=== PATIENT | male | born 1945 | race Caucasian/White ===

== ENCOUNTER → 2019-06-14 08:42 | Outpatient (CLI) | payer OTHER ==
[2012-07-05 09:35] VITALS: BMI 27.9
--- NOTE | 2019-06-15 10:23 | EC ---
PATIENT:RUPALI ANN JR DATE OF SERVICE: 06/14/19 SEX: M MEDICAL RECORD: [id number] DATE OF : 43 LOCATION:[facility] AGE OF PATIENT: 73 ADMISSION DATE: 06/14/19 REFERRING PHYSICIAN: INTERPRETING PHYSICIAN: SO CMFARLAND MD ECHOCARDIOGRAM REPORT ECHO CHARGES 4 ECHO COMPLETE Date: 06/14/19 CLINICAL DIAGNOSIS: AORTIC INSUFF HX OF HTN ECHOCARDIOGRAPHIC MEASUREMENTS (adult normal given) AC root (d.<3.7cm) 4.5 cm LV Septum d (<1.2 cm> 1.9 cm Valve Excursion 2.0 cm LV Septum (systole) 2.32 cm Left Atria (s.<4.0cm> 4.0 cm LVPW d(<1.2cm) 1.9 cm RV (d.<2.3cm) 3.8 cm LVPW (sytole) 2.2 cm LV diastole(<5.6CM) 4.6 cm MV E-F(>70mm/sec) cm LV systole 2.9 cm LVOT Diameter 1.8 cm MV exc.(>10mm) 1.5 cm Est.ejection fraction (50-75%) % DOPPLER: LVIT cm/sec A 586.0cm/sec E 62.0 cm/sec LA cm/sec RVSP 30 mmHg LVOT 107 cm/sec AOP1/2T 407 m/s Asc. Ao 149 cm/sec RVOT 82 cm/sec RA cm/sec PA 118 cm/sec AV Gradient Peak 8.82 mmHg AV Mean 4.87 mmHg AV Area 1.9 cm MV Gradient Peak 3.35 mmHg MV Mean 1.53 mmHg MV Area cm COMMENTS: Rail Tractor Operator: Kym GILLIS Yard Specialist: 1 Dr. Mcfarland TAPE# PACS Pericardial Effusion N DATE OF SERVICE: 06/14/2019 ECHOCARDIOGRAM FINDINGS: 1. Left ventricular chamber size is within normal limits. Left ventricular systolic function is normal. Overall ejection fraction estimated at 65%. 2. Left atrium is upper limits of normal at 4.0 cm. Right atrium and right ventricular chamber sizes are mildly dilated. 3. Valvular structures have normal structure and motion. ECHOCARDIOGRAM REPORT [id number] RUPALI ANN JR 4. Doppler interrogation reveals mild aortic insufficiency, mild tricuspid regurgitation, no other valvular insufficiency or stenosis. Pulmonary systolic pressure is preserved at 30 mmHg. 5. No evidence of pericardial effusion or left ventricular thrombus. TRANSINT:[id number] Voice Confirmation ID: [id number] DOCUMENT ID: [id number] SO MCFARLAND MD at 1023 CC: [id number] DICTATION DATE: 06/14/19 1209 MR TEACHER: 06/14/19 1550 DEP CLI 06/14/19 [place] [id number] [place] [id number]
== END | disposition home or self-care (01) ==
LOC: D.HCCECHO 08:42
PROVIDERS: ATTEND Internal Medicine Interventional Cardiology
DX: I35.1 Nonrheumatic aortic (valve) insufficiency (principal)